=== PATIENT | female | born 1955 | race Hispanic/Latino ===

== ENCOUNTER → 2019-02-13 | Outpatient (CLI) | payer MEDICARE ==
--- NOTE | 2019-02-13 10:00 | NUR ---
MBSS COMPLETE. -S/S OF ASPIRATION. RECOMMEND REGULAR, THIN LIQUID DIET; PILLS WHOLE WITH LIQUIDS. PATIENT INFORMATION: Pt IS A 63 Y.O. FEMALE REFERRED FOR AN MBSS SECONDARY TO C/O DIFFICULTY SWALLOWING FOODS AND FOOD GETTING STUCK. Pt AAOX3 AND SERVED THE PRIMARY INFORMANT FOR MEDICAL AND SOCIAL HISTORY. Pt DESCRIBES SWALLOWING DIFFICULTY FOOD GETTING STUCK AND NOT GOING DOWN (MORE SO WITH BREAD AND TORTILLAS. Pt HAS A PAST MEDICAL HISTORY OF DISKECTOMY WITH FUSION AT C6-C7, CHOLECYSTECTOMY, EAR SURGERY X2, DM, HYPOTHYROIDISM, HIATAL HERNIA, AND GERD. MBSS INTERPRETATION: SWALLOW FUNCTION AND EFFICIENCY WITHIN FUNCTIONAL LIMITS. ORAL MOTOR STRENGTH, COORDINATION, AND ROM WITHIN FUNCTIONAL LIMITS. LARYNGEAL ELEVATION/EXCURSION STRONG WITH TIMELY PHARYNGEAL RESPONSE. NO OVERT SIGNS OR SYMPTOMS OF ASPIRATION PRESENT DURING MBSS. INSTRUMENTATION AT C6-C7 WITH MINIMAL NARROWING IN PHARYNX NOT INTERFERING WITH SWALLOW FUNCTION AT THIS TIME. A-P VIEW: UNREMARKABLE. TRIALS: 1. TSP PUREED: GOOD 2. TSP PUDDING: GOOD 3. TSP MIXED: GOOD 4. COOKIE: GOOD 5. CUP SIP THIN LIQUIDS: GOOD 6. A-P TSP PUDDING: GOOD RECOMMENDATIONS: 1. REGULAR TEXTURE, THIN LIQUID DIET; PILLS WHOLE WITH LIQUIDS. 2. COMPENSATORY STRATEGIES (PROPHYLAXIS): *SEATED AT 90 DEGREE ANGLE *REMAIN UPRIGHT 30 MINUTES AFTER MEAL TIMES G-CODES SWALLOWING: [id number] Addendum: 02/13/19 at [address] Amended: Links added.
== END | disposition home or self-care (01) ==
LOC: RAH 09:50
PROVIDERS: ATTEND Nurse Practitioner Family
DX: K21.9 Gastro-esophageal reflux disease without esophagitis (principal); R13.10 Dysphagia, unspecified; E03.9 Hypothyroidism, unspecified; E11.9 Type 2 diabetes mellitus without complications; Z90.49 Acquired absence of other specified parts of digestive tract; Z98.890 Other specified postprocedural states
CPT/HCPCS: G8996; G8997; G8998; 74230; 92611

== ENCOUNTER 2023-02-15 23:18 | Inpatient (IN) | payer MEDICARE ==
[~2023-02-15] VITALS: Ht 157.5 cm; Wt 97.1 kg
[2023-02-16 00:54] LABS: BASOPHILS % (AUTO) 0.4 % (0.0-5.0); EOSINOPHILS % (AUTO) 0.8 % (0.0-8.0); HEMATOCRIT 33.6 % (36-48); LYMPHOCYTES % (AUTO) 27.5 % (21.0-51.0); MEAN CORPUSCULAR HEMOGLOBIN 23.5 pg (27.0-33.0); MEAN CORPUSCULAR HGB CONC 31.3 g/dL (32.0-36.0); MEAN CORPUSCULAR VOLUME 75.2 fL (79-99); NEUTROPHILS % (AUTO) 64.1 % (40.0-77.0); PLATELET COUNT (AUTO) 422 K/uL (130-400); RED BLOOD CELL COUNT(AUTO) 4.47 MIL/uL (4.00-5.50); RED CELL DISTRIBUTION WIDTH 17.7 % (11.0-15.5); WHITE BLOOD COUNT (AUTO) 8.4 K/uL (4.8-10.8)
[2023-02-16 01:04] LABS: CREATININE 0.9 mg/dL (0.5-1.5); POTASSIUM 3.5 mmol/L (3.5-5.1)
[2023-02-16 01:08] LABS: ALBUMIN 3.5 g/dL (3.5-5.0); TOTAL PROTEIN, SERUM 7.2 g/dL (6.0-8.3)
[2023-02-16 01:14] LABS: APPEARANCE,URINE CLOUDY (CLEAR); BILIRUBIN,URINE NEGATIVE (NEGATIVE); COLOR,URINE YELLOW (YELLOW); GLUCOSE, URINE (UA) NEGATIVE (NEGATIVE); KETONES,URINE NEGATIVE (NEGATIVE); LEUKOCYTE ESTERASE ,URINE 250 Leu/uL (NEGATIVE); NITRATE,URINE NEGATIVE (NEGATIVE); OCCULT BLOOD,URINE NEGATIVE (NEGATIVE); PH,URINE 5.5 (5.0-8.0); PROTEIN,URINE 20 mg/dL (NEGATIVE)
[2023-02-16 01:20] LABS: BACTERIA,URINE RARE /HPF (None Seen); MUCUS,URINE FEW LPF (None Seen); SQUAMOUS EPITHELIAL CELL,UR MANY /HPF (0-2)
[2023-02-16] MEDS ORDERED: KETOROLAC 15MG/ML VIAL (15MG/ML) IV ONE (02:30)
[2023-02-16] MEDS ORDERED: MORPHINE 4 MG SYG ONE (04:59)
[2023-02-16] MEDS ORDERED: ONDANSETRON 4MG INJ ONE (05:00)
[2023-02-16] MEDS ORDERED: MORPHINE 4 MG SYG IVP STA (05:07)
[2023-02-16] MEDS ORDERED: ONDANSETRON 4MG INJ IVP STA (05:09)
[2023-02-16] MEDS ORDERED: IOHEXOL-350 75 ML VIAL IV ONE (06:07)
[2023-02-16] MEDS ORDERED: CEFTRIAXONE 2GM VIAL IVPB ONE (08:00)
[2023-02-16] MEDS ORDERED: 0.9%NACL 1000ML 1,000 ML IV ONE ×2 (08:00→11:00)
[2023-02-16] MEDS ORDERED: MORPHINE 2 MG SYG IVP PRN (11:00)
[2023-02-16] MEDS ORDERED: ONDANSETRON 4MG INJ IVP PRN (11:00)
[2023-02-16 11:20] LABS: HEMOGLOBIN A1C 6.3 % (4.0-6.0)
[2023-02-16 11:59] LABS: INR 0.93 (0.85-1.15); PROTHROMBIN TIME 10.3 SEC (9.6-11.6)
[2023-02-16] MEDS ORDERED: METF-910 PO (12:26)
[2023-02-16] MEDS ORDERED: AEC81 PO (12:26)
[2023-02-16] MEDS ORDERED: LORA10TA7 PO (12:26)
[2023-02-16] MEDS ORDERED: BUPR-49 PO (12:26)
[2023-02-16] MEDS ORDERED: OMEP20CA12 PO (12:26)
[2023-02-16] MEDS ORDERED: LEVO75CA5 PO (12:26)
[2023-02-16] MEDS: PANTOPRAZOLE 40 MG/VIAL IVP SCH (12:56)
[2023-02-16 16:00] VITALS: BP 154/78
[2023-02-16 19:00] VITALS: BP 122/60
[2023-02-16 23:00] VITALS: BP 113/55
[2023-02-17 04:57] LABS: BASOPHILS % (AUTO) 0.3 % (0.0-5.0); EOSINOPHILS % (AUTO) 1.8 % (0.0-8.0); LYMPHOCYTES % (AUTO) 29.8 % (21.0-51.0); MEAN CORPUSCULAR HEMOGLOBIN 23.6 pg (27.0-33.0); MEAN CORPUSCULAR HGB CONC 30.3 g/dL (32.0-36.0); MEAN CORPUSCULAR VOLUME 77.7 fL (79-99); MONOCYTES % (AUTO) 8.6 % (3.0-13.0); NEUTROPHILS % (AUTO) 58.9 % (40.0-77.0); PLATELET COUNT (AUTO) 322 K/uL (130-400); RED BLOOD CELL COUNT(AUTO) 3.99 MIL/uL (4.00-5.50); RED CELL DISTRIBUTION WIDTH 17.5 % (11.0-15.5); WHITE BLOOD COUNT (AUTO) 6.2 K/uL (4.8-10.8)
[2023-02-17 05:00] VITALS: BP 123/69
[2023-02-17 05:41] LABS: CREATININE 0.8 mg/dL (0.5-1.5)
[2023-02-17 05:59] LABS: RETICULOCYTE % (AUTO) 2.37 % (0.42-2.23)
[2023-02-17 06:19] LABS: % IRON SATURATION 11.2 % (22-44)
[2023-02-17 08:00] VITALS: BP 126/77
[2023-02-17] MEDS ORDERED: PANTOPRAZOLE 40 MG/VIAL IVP SCH (09:00)
[2023-02-17] MEDS: CEFTRIAXONE 1G VIAL IVPB SCH (09:43)
[2023-02-17] MEDS: PANTOPRAZOLE 40 MG/VIAL IVP SCH (09:43)
[2023-02-17] MEDS ORDERED: LACTULOSE 20 GM/30 ML UDCUP PO ONE (11:30)
[2023-02-17 11:33] VITALS: BP 128/69
[2023-02-17 15:55] VITALS: BP 130/76
[2023-02-17 20:00] VITALS: BP 114/56
[2023-02-17] MEDS: LACTULOSE 20 GM/30 ML UDCUP PO SCH (20:35)
[2023-02-18] VITALS: BP 121/61
[2023-02-18 04:00] VITALS: BP 146/75
[2023-02-18 06:20] LABS: BASOPHILS % (AUTO) 0.4 % (0.0-5.0); HEMATOCRIT 30.9 % (36-48); LYMPHOCYTES % (AUTO) 25.1 % (21.0-51.0); MEAN CORPUSCULAR HEMOGLOBIN 22.9 pg (27.0-33.0); MEAN CORPUSCULAR HGB CONC 29.8 g/dL (32.0-36.0); MEAN CORPUSCULAR VOLUME 77.1 fL (79-99); MONOCYTES % (AUTO) 7.3 % (3.0-13.0); NEUTROPHILS % (AUTO) 65.9 % (40.0-77.0); PLATELET COUNT (AUTO) 343 K/uL (130-400); RED BLOOD CELL COUNT(AUTO) 4.01 MIL/uL (4.00-5.50); RED CELL DISTRIBUTION WIDTH 17.7 % (11.0-15.5); WHITE BLOOD COUNT (AUTO) 7.9 K/uL (4.8-10.8)
[2023-02-18 06:34] LABS: CREATININE 0.8 mg/dL (0.5-1.5); MAGNESIUM 1.9 mg/dL (1.80-2.40); PHOSPHORUS 3.8 mg/dL (2.5-4.9); POTASSIUM 3.6 mmol/L (3.5-5.1)
[2023-02-18] MEDS: KCL 20 MEQ ERTAB PO PRN ×2 (07:31→09:31)
[2023-02-18 07:32] VITALS: BP 137/66
[2023-02-18] MEDS ORDERED: POTASSIUM CHLORIDE 10% ELIXIR 20 MEQ/15 ML UDCUP PO PRN (08:30)
[2023-02-18] MEDS ORDERED: MAGNESIUM 2GM PREMIX 50ML 50 ML IV PRN (08:30)
[2023-02-18] MEDS ORDERED: POTASSIUM CHLORIDE 20MEQ/100ML 100 ML IV PRN (08:30)
[2023-02-18] MEDS: PANTOPRAZOLE 40 MG/VIAL IVP SCH (09:30)
[2023-02-18] MEDS: LACTULOSE 20 GM/30 ML UDCUP PO SCH (09:30)
[2023-02-18] MEDS: CEFTRIAXONE 1G VIAL IVPB SCH (09:30)
[2023-02-18 11:17] VITALS: BP 137/83
[2023-02-18] MEDS ORDERED: LEVO750T39 PO (11:43)
== END 2023-02-18 13:30 | disposition home or self-care (01) | DRG 690 ==
LOC: EDH 23:18 → EDHIP 02-16 10:55 → 4CH 02-16 16:00
PROVIDERS: ADMIT Internal Medicine; ATTEND Internal Medicine
DX: N39.0 Urinary tract infection, site not specified (principal); R07.89 Other chest pain; E11.9 Type 2 diabetes mellitus without complications; D50.9 Iron deficiency anemia, unspecified; E03.9 Hypothyroidism, unspecified; I10 Essential (primary) hypertension; F32.A Depression, unspecified; Z80.0 Family history of malignant neoplasm of digestive organs; Z90.49 Acquired absence of other specified parts of digestive tract; Z80.3 Family history of malignant neoplasm of breast
CPT/HCPCS: 36415; 71270; 74170; 74176; 80048; 80053; 81001; 82550; 82607; 82728; 83036; 83605; 83690; 83735; 84100; 84443; 84484; 85025; 85610; 85730; 87088; 93005; 93306; C9113; G0378; J0696; J1885; J2270; J2405; J3475; J7030; Q9967

== ENCOUNTER 2023-04-13 20:37 | Emergency (ER) | payer MEDICARE ==
[~2023-04-13] VITALS: Ht 157.5 cm; Wt 94.8 kg
[~2023-04-13 20:37] MED LIST: AEC81 PO; BUPR-49 PO; LEVO750T39 PO; LEVO75CA5 PO; LORA10TA7 PO; METF-910 PO; OMEP20CA12 PO
[2023-04-13] MEDS ORDERED: 0.9%NACL 1000ML 1,000 ML IV ONE ×2 (21:00→23:30)
[2023-04-13] MEDS ORDERED: ONDANSETRON 4MG INJ IVP ONE (21:00)
[2023-04-13 21:04] LABS: BASOPHILS # (AUTO) 0.05 K/uL (0.00-0.20); BASOPHILS % (AUTO) 0.5 % (0.0-5.0); EOSINOPHILS # (AUTO) 0.06 K/uL (0.00-0.70); EOSINOPHILS % (AUTO) 0.6 % (0.0-8.0); HEMATOCRIT 32.2 % (36-48); IMMATURE GRANULOCYTE ABSOLUTE 0.03 K/uL (0-1); LYMPHOCYTES # (AUTO) 3.1 K/uL (1.0-4.8); LYMPHOCYTES % (AUTO) 29.2 % (21.0-51.0); MEAN CORPUSCULAR HEMOGLOBIN 23.3 pg (27.0-33.0); MEAN CORPUSCULAR HGB CONC 30.7 g/dL (32.0-36.0); MEAN CORPUSCULAR VOLUME 75.9 fL (79-99); MONOCYTES # (AUTO) 0.7 K/uL (0.1-1.0); MONOCYTES % (AUTO) 6.8 % (3.0-13.0); NEUTROPHILS # (AUTO) 6.6 K/uL (1.8-7.7); NEUTROPHILS % (AUTO) 62.6 % (40.0-77.0); PLATELET COUNT (AUTO) 397 K/uL (130-400); RED BLOOD CELL COUNT(AUTO) 4.24 MIL/uL (4.00-5.50); RED CELL DISTRIBUTION WIDTH 16.8 % (11.0-15.5); WHITE BLOOD COUNT (AUTO) 10.5 K/uL (4.8-10.8)
[2023-04-13 21:15] LABS: CREATININE 0.7 mg/dL (0.5-1.5); POTASSIUM 3.3 mmol/L (3.5-5.1)
[2023-04-13 21:19] LABS: ALBUMIN 3.5 g/dL (3.5-5.0); BILIRUBIN,TOTAL 0.2 mg/dL (0.2-1.0); TOTAL PROTEIN, SERUM 7.1 g/dL (6.0-8.3)
[2023-04-13 22:03] VITALS: BP 124/65; PULSE 73; RESP 16; O2SAT 98
[2023-04-13] MEDS ORDERED: FAMOTIDINE 20MG VIAL IV ONE (23:30)
[2023-04-13] MEDS ORDERED: METOCLOPRAMIDE 10 MG/2 ML VIAL IVP ONE (23:30)
[2023-04-13 23:57] LABS: APPEARANCE,URINE CLEAR (CLEAR); BILIRUBIN,URINE NEGATIVE (NEGATIVE); COLOR,URINE YELLOW (YELLOW); GLUCOSE, URINE (UA) NEGATIVE (NEGATIVE); KETONES,URINE NEGATIVE (NEGATIVE); LEUKOCYTE ESTERASE ,URINE NEGATIVE Leu/uL (NEGATIVE); NITRATE,URINE NEGATIVE (NEGATIVE); OCCULT BLOOD,URINE NEGATIVE (NEGATIVE); PH,URINE 7.5 (5.0-8.0); PROTEIN,URINE NEGATIVE (NEGATIVE); UROBILINOGEN,URINE 0.2 mg/dL (0.2-1.0)
[2023-04-13 23:58] LABS: ADD UA MICROSCOPIC NO
[2023-04-14] MEDS ORDERED: ONDA4TAB10 PO (15:11)
== END 2023-04-14 00:41 | disposition home or self-care (01) ==
LOC: EDH 20:37
DX: T50.995A Adverse effect of other drugs, medicaments and biological substances, initial encounter (principal); E11.9 Type 2 diabetes mellitus without complications; E78.00 Pure hypercholesterolemia, unspecified; E03.9 Hypothyroidism, unspecified; Z79.84 Long term (current) use of oral hypoglycemic drugs; Z79.890 Hormone replacement therapy; Z79.899 Other long term (current) drug therapy; Z90.49 Acquired absence of other specified parts of digestive tract; Y92.89 Other specified places as the place of occurrence of the external cause
CPT/HCPCS: 99284 ×2; 84484 ×2; 80053 ×2; 83690; 85025 ×2; 81003; 36415 ×2; 96374 ×2; 96375; 93005 ×2; 82550; 83880; 96361; J3490; J7030 ×2; J2405 ×2; J2765; J7120

== ENCOUNTER 2023-04-14 12:55 | Emergency (ER) | payer MEDICARE ==
[~2023-04-14] VITALS: Ht 162.6 cm; Wt 77.1 kg
[2023-04-14 13:23] LABS: BASOPHILS # (AUTO) 0.02 K/uL (0.00-0.20); BASOPHILS % (AUTO) 0.2 % (0.0-5.0); HEMATOCRIT 31.1 % (36-48); IMMATURE GRANULOCYTE ABSOLUTE 0.04 K/uL (0-1); LYMPHOCYTES # (AUTO) 0.9 K/uL (1.0-4.8); LYMPHOCYTES % (AUTO) 10.1 % (21.0-51.0); MEAN CORPUSCULAR HEMOGLOBIN 23.5 pg (27.0-33.0); MEAN CORPUSCULAR HGB CONC 31.2 g/dL (32.0-36.0); MEAN CORPUSCULAR VOLUME 75.3 fL (79-99); MONOCYTES # (AUTO) 0.5 K/uL (0.1-1.0); MONOCYTES % (AUTO) 5.3 % (3.0-13.0); NEUTROPHILS # (AUTO) 7.6 K/uL (1.8-7.7); PLATELET COUNT (AUTO) 396 K/uL (130-400); RED BLOOD CELL COUNT(AUTO) 4.13 MIL/uL (4.00-5.50); RED CELL DISTRIBUTION WIDTH 17.1 % (11.0-15.5)
[2023-04-14] MEDS ORDERED: ONDANSETRON 4MG INJ IVP ONE (13:30)
[2023-04-14] MEDS ORDERED: LACTATED RINGERS 1000ML 1,000 ML IV ONE (13:30)
[2023-04-14 13:32] LABS: CREATININE 0.7 mg/dL (0.5-1.5); POTASSIUM 3.8 mmol/L (3.5-5.1)
[2023-04-14 13:37] LABS: ALBUMIN 3.3 g/dL (3.5-5.0); BILIRUBIN,TOTAL 0.3 mg/dL (0.2-1.0)
[2023-04-14 14:03] LABS: B-TYPE NATRIURETIC PEPTIDE 68 pg/mL (0-100)
[2023-04-14] MEDS ORDERED: ONDA4TAB10 PO (15:11)
[2023-04-14 15:46] VITALS: BP 147/85; PULSE 84; RESP 18; O2SAT 98
== END 2023-04-14 15:50 | disposition home or self-care (01) ==
LOC: EDH 12:55
DX: T50.905A Adverse effect of unspecified drugs, medicaments and biological substances, initial encounter (principal); E11.9 Type 2 diabetes mellitus without complications; E03.9 Hypothyroidism, unspecified; E78.00 Pure hypercholesterolemia, unspecified; Z79.82 Long term (current) use of aspirin; Z79.84 Long term (current) use of oral hypoglycemic drugs; Z79.899 Other long term (current) drug therapy; Z90.49 Acquired absence of other specified parts of digestive tract; Z98.890 Other specified postprocedural states; Z88.8 Allergy status to other drugs, medicaments and biological substances; Y92.89 Other specified places as the place of occurrence of the external cause
CPT/HCPCS: 99284; 96374; 96361; 82550; 84484; 80053; 83880; 85025; 36415; 93005; J7120; J2405

== ENCOUNTER 2023-07-27 07:39 | Observation (INO) | payer MEDICARE ==
[2023-07-25 09:40] LABS: BASOPHILS # (AUTO) 0.02 K/uL (0.00-0.20); BASOPHILS % (AUTO) 0.3 % (0.0-5.0); EOSINOPHILS # (AUTO) 0.04 K/uL (0.00-0.70); EOSINOPHILS % (AUTO) 0.6 % (0.0-8.0); HEMATOCRIT 45.3 % (36-48); IMMATURE GRANULOCYTE ABSOLUTE 0.02 K/uL (0-1); LYMPHOCYTES # (AUTO) 1.4 K/uL (1.0-4.8); MEAN CORPUSCULAR HEMOGLOBIN 27.5 pg (27.0-33.0); MEAN CORPUSCULAR HGB CONC 32.5 g/dL (32.0-36.0); MEAN CORPUSCULAR VOLUME 84.7 fL (79-99); MONOCYTES # (AUTO) 0.4 K/uL (0.1-1.0); MONOCYTES % (AUTO) 6.1 % (3.0-13.0); NEUTROPHILS % (AUTO) 72.7 % (40.0-77.0); PLATELET COUNT (AUTO) 334 K/uL (130-400); RED BLOOD CELL COUNT(AUTO) 5.35 MIL/uL (4.00-5.50); RED CELL DISTRIBUTION WIDTH 18.1 % (11.0-15.5); WHITE BLOOD COUNT (AUTO) 6.9 K/uL (4.8-10.8)
[2023-07-25 09:48] LABS: CREATININE 0.8 mg/dL (0.5-1.5); POTASSIUM 4.3 mmol/L (3.5-5.1)
[2023-07-25 09:56] VITALS: BP 149/82; PULSE 81; RESP 19
[2023-07-27] VITALS (18 sets, daily range): BP systolic 121–151; BP diastolic 65–80; PULSE 70–84; RESP 15–23; O2SAT 96–97
[~2023-07-27] VITALS: Ht 157.5 cm; Wt 87.7 kg
[~2023-07-27 07:39] MED LIST changes: +ACET-2743 PO; +FERR-72 PO; -LEVO750T39 PO; +PHARMACY COMMUNICATION MISC SCH; +TRAM50TA4 PO
[2023-07-27] MEDS ORDERED: BUPIVACAINE/PF 0.5% 30ML VIAL ONE (08:32)
[2023-07-27] MEDS ORDERED: BUPIVACAINE/PF 0.25% 30ML VIAL IJ ONE (08:32)
[2023-07-27] MEDS ORDERED: DEXAMETHASONE SOD PHOSPHATE 10MG/ML 1ML VIAL ONE (08:49)
[2023-07-27] MEDS ORDERED: LIDOCAINE PF 100MG/5ML (2%) SYRINGE 5ML ONE (08:49)
[2023-07-27] MEDS ORDERED: SUCCINYLCHOLINE 200MG/10ML SYR ONE ×2 (08:49→08:52)
[2023-07-27] MEDS ORDERED: ROCURONIUM 10MG/1ML SYR 10 MG/ML ML ONE ×2 (08:50→11:19)
[2023-07-27] MEDS ORDERED: GLYCOPYRROLATE 1 MG/5 ML SYRINGE ONE (08:50)
[2023-07-27] MEDS ORDERED: NEOSTIGMINE 5MG/5ML SYR IV ONE (08:50)
[2023-07-27] MEDS ORDERED: MIDAZOLAM HCL 1 MG/ML 2ML VIAL ONE (08:50)
[2023-07-27] MEDS ORDERED: ONDANSETRON 4MG INJ ONE (08:50)
[2023-07-27] MEDS ORDERED: PROPOFOL 10 MG/ML 20ML VIAL IV ONE (08:50)
[2023-07-27] MEDS ORDERED: FENTANYL CITRATE PF 50 MCG/1 ML 2ML VIAL ONE ×2 (08:51→11:13)
[2023-07-27] MEDS ORDERED: CEFAZOLIN SODIUM 2 GM VIAL ONE (09:02)
[2023-07-27] MEDS ORDERED: 0.9%NACL 1000ML 1,000 ML IV ONE (09:02)
[2023-07-27] MEDS ORDERED: ACETAMINOPHEN 1,000 MG/100 ML VIAL IV ONE (12:15)
[2023-07-27] MEDS ORDERED: HYDROCODONE/ACETAMINOPHEN 7.5/325 MG 15 ML UDCUP PO PRN (13:00)
[2023-07-27] MEDS ORDERED: PROCHLORPERAZINE 10MG/2ML INJ IV PRN (13:00)
[2023-07-27] MEDS ORDERED: ONDANSETRON 4MG INJ IVP PRN (13:00)
[2023-07-27] MEDS: LACTATED RINGERS 1000ML 1,000 ML IV SCH ×2 (13:00→22:41)
[2023-07-27] MEDS ORDERED: HYDROMORPHONE 1 MG INJ IVP PRN (13:00)
[2023-07-27] MEDS ORDERED: MEPERIDINE-PF 25 MG/ML SYG ONE (13:43)
[2023-07-27] MEDS: ENOXAPARIN SODIUM 30 MG/0.3 ML SQ SCH ×2 (14:15→23:55)
[2023-07-27] MEDS: KETOROLAC 15MG/ML VIAL (15MG/ML) IV PRN (15:41)
[2023-07-28] VITALS: BP 150/77; PULSE 68; RESP 18
[2023-07-28] MEDS: LACTATED RINGERS 1000ML 1,000 ML IV SCH ×2 (02:20→08:41)
[2023-07-28 04:00] VITALS: BP 120/81; PULSE 71; RESP 18
[2023-07-28] MEDS ORDERED: LEVOTHYROXINE 75 MCG TABLET ONE (05:28)
[2023-07-28] MEDS: KETOROLAC 15MG/ML VIAL (15MG/ML) IV PRN (05:31)
[2023-07-28] MEDS ORDERED: LEVOTHYROXINE 75 MCG TABLET PO SCH (06:30)
[2023-07-28 06:43] VITALS: O2SAT 96
[2023-07-28 08:00] VITALS: BP 120/73; PULSE 72; RESP 16; O2SAT 98
[2023-07-28] MEDS ORDERED: PANTOPRAZOLE 40 MG/VIAL IVP SCH (09:00)
[2023-07-28] MEDS ORDERED: BUPROPION HCL 150 MG TABLET.SA PO SCH (09:00)
[2023-07-28 12:00] VITALS: BP 112/53; PULSE 79; RESP 16
== END 2023-07-28 15:15 | disposition home or self-care (01) ==
LOC: DAH 07:39 → DAHIP 07:40 → INTOOBSV 07:40 → 3DH 14:10
PROVIDERS: ADMIT Surgery; ATTEND Surgery
DX: K44.9 Diaphragmatic hernia without obstruction or gangrene (principal); K21.9 Gastro-esophageal reflux disease without esophagitis; E03.9 Hypothyroidism, unspecified; E11.9 Type 2 diabetes mellitus without complications; F32.A Depression, unspecified; K76.0 Fatty (change of) liver, not elsewhere classified; D64.9 Anemia, unspecified; E66.9 Obesity, unspecified; Z79.899 Other long term (current) drug therapy
CPT/HCPCS: 80048; 85025; 86850; 86900; 86901; 36415; 93005; 43282; 96374; 96372; 96375 ×2; 82948 ×6; 97161; 97116; 97530 ×2; 43235; 94664; 96376; A6260; A4600; A4663; J7030 ×2; A4215 ×2; J3010 ×2; J1170; J0330 ×2; J3490; J1100; J2710; J2001; J1650; J2250; J2704; J2405; J0665; J2175; J1885 ×2; J0690; G0168; C1781; A4930; A4223; A4222; A4221; G0378 ×8; C9113; G8980-CI; G8983-CI